=== PATIENT | female | born 1940 | race Caucasian/White ===

== ENCOUNTER → 2016-03-24 | Outpatient (CLI) | payer MEDICARE, OTHER | LOC: GMAL 12:30 | PROVIDERS: ATTEND Family Medicine | DX: D51.3 Other dietary vitamin B12 deficiency anemia (principal); E55.9 Vitamin D deficiency, unspecified ==

== ENCOUNTER → 2016-06-20 | Outpatient (CLI) | payer MEDICARE, OTHER | END | disposition home or self-care (01) | LOC: GMAL 17:13 | PROVIDERS: ATTEND Family Medicine | DX: R53.83 Other fatigue (principal); D51.3 Other dietary vitamin B12 deficiency anemia; E55.9 Vitamin D deficiency, unspecified ==

== ENCOUNTER → 2017-01-16 | Outpatient (CLI) | payer MEDICARE, OTHER | END | disposition home or self-care (01) | LOC: GMAL 10:44 | PROVIDERS: ATTEND Family Medicine | DX: D51.3 Other dietary vitamin B12 deficiency anemia (principal); E55.9 Vitamin D deficiency, unspecified ==

== ENCOUNTER → 2017-03-29 | Outpatient (CLI) | payer MEDICARE, OTHER ==
--- NOTE | 2017-03-29 20:24 | US ---
EXAM DESCRIPTION: Thyroid: Ultrasound. CLINICAL HISTORY: THYROID NODULE COMPARISON: None. TECHNIQUE: Transcutaneous scannin-dimensional and Doppler modes. Largest nodule(s) bilaterally will have point score for TI-RADS. FINDINGS: Right lobe dimensions 5.1 x 1.6 x 1.0 cm. Heterogeneous echoes. Hypoechoic solid nodule with well-defined borders in the lower aspect of the right lobe. Parallel orientation (wider than tall) with no echogenic foci. Minimally vascular, dimensions 1.8 x 1.3 x 0.8 cm. Normal vascularity in the remainder of the lobe and No echogenic foci. Contour right lobe smooth. Juxta-thyroid masses/fluid: none. Left lobe dimensions 4.8 x 1.7 x 1.3 cm. Heterogeneous echoes. Very hypoechoic mostly solid mass with well-defined borders in the mid lobe measuring 10.7 x 6.0 x 4.1 mm. This nodule is vascular, with parallel orientation, but contains no echogenic foci. Second nodule is hypoechoic, mostly solid with well-defined pack. Parallel orientation and nonvascular, but no echogenic foci. Dimensions are 13.6 x 9.0 x 8.0 mm. Normal vascularity in the remainder of the lobe And no echogenic foci. Contour left lobe smooth. Juxta-thyroid masses/fluid: none. Isthmus thickness 2.1 mm. Heterogeneous echoes. No cystic, no solid, and no complex lesions. Normal vascularity. Contour smooth. IMPRESSION: 1. 1.8 cm solid nodule in the right lobe with 4 points in the ACR TI RADS. Grade is TR 4-moderately suspicious. With greatest diameter longer than 1.5 cm, image guided fine needle aspiration sampling should be considered. 2. 1.1 cm solid nodule in the mid left lobe with 5 points in the ACR TI RADS. Grade is TR 4-moderately suspicious. With greatest diameter less than 1.5 cm, consider follow-up imaging in one year interval. 3. 1.4 cm solid nodule in the mid left lobe, with 4 points in the ACR TI RADS. Grade is TR 4-moderately suspicious. With greatest diameter less than 1.5 cm, consider follow-up imaging in one year interval. 4. No discrete solid masses, cystic masses, or edema in the surrounding soft tissues. *ACR TI-RADS recommendations: TR5 (greater than or equal to 7 points) - FNA if greater than or equal to 1 cm, follow-up if 0.5 - 0.9 cm every year for 5 years TR4 (4-6 points) - FNA if greater than or equal to 1.5 cm, follow-up if 1 - 1.4 cm in 1, 2, 3 and 5 years TR3 (3 points) - FNA if greater than or equal to 2.5 cm, follow -up if 1.5 - 2.4 cm in 1, 3 and 5 years TR2 (2 points) and TR1 (0 points) - No FNA or follow-up * ACR TI-RADS recommends that no more than two nodules with the highest ACR TI-RADS total point should be biopsied and no more than four nodules should be followed. White Paper of the ACR TI-RADS Committee, JACR, 2017. Electronically signed by: Sawyer Owusu MD 03/29/2017 8:23 PM [facility]
== END | disposition home or self-care (01) ==
LOC: US 09:49
PROVIDERS: ATTEND Family Medicine
DX: E04.1 Nontoxic single thyroid nodule (principal)

== ENCOUNTER → 2017-04-12 | Outpatient (CLI) | payer OTHER ==
--- NOTE | 2017-04-12 19:40 | US ---
EXAM DESCRIPTION: Biopsy of Thyroid: Ultrasound. CLINICAL HISTORY: 77 yearsFemale COMPARISON: Ultrasound thyroid gland 03/29/2017. TECHNIQUE: Procedure was explained to the patient with risks and benefits. The patient gave verbal and written consent. Sterile preparation draping. 1% xylocaine dermal anesthetic. Sterile ultrasound guidance. A total of 4 passes into nodule in the right lobe.; 3 needle samplings with a separate 1.5 inch, 25-gauge needle per sample, and 1 needle aspiration, with a separate 1.5 inch, 25-gauge needle/10-cc syringe set, per aspiration. Each sample was placed on a separate slide and fixed in 95% alcohol container. . Saccomanno fluid drawn into aspirate needle and rinse injected into Saccomanno container. Specimens will be sent for later pathologic examination at remote facility. . Patient tolerated procedure well, with no immediate complications. FINDINGS: Preliminary scans show the hypoechoic nodule in the right lobe measuring 1.3 x 0.7 cm. Multiple images show the echogenic sampling needles and aspiration needle within the nodule. IMPRESSION: Successful, ultrasound-guided, fine-needle aspiration and sampling of abnormal nodule in the right lobe of the thyroid gland. Pathology reports are pending. Electronically signed by: Sawyer Owusu MD 04/12/2017 7:39 PM [facility]MO Workstation: [id number]
== END ==
LOC: US 08:49
PROVIDERS: ATTEND Family Medicine
DX: E04.1 Nontoxic single thyroid nodule (principal)

== ENCOUNTER → 2017-06-12 | Outpatient (CLI) | payer OTHER ==
--- NOTE | 2017-06-13 09:27 | MRI ---
EXAM DESCRIPTION: Brain w/wo Contrast: Magnetic Resonance Imaging. CLINICAL HISTORY: ATAXIC GAIT COMPARISON: MRI scan brain 05/31/2012. TECHNIQUE: Multiplanar, high-field MRI, multiple conventional sequences, without and with gadolinium IV contrast. No adverse reactions. Multiple axial diffusion sequences. FINDINGS: Age-related FLAIR and T2-weighted signal changes in the periventricular white matter and conn-white matter junctions of the cerebral hemispheres. . Small right FLAIR foci in the bilateral basal ganglia. No hemorrhage, no cerebral edema, no mass-effect. Normal contrast enhancement. Normal signal in the brainstem and left cerebellar hemisphere. Question of atrophy/encephalomalacia lateral right hemisphere cortical conn matter and subcortical white matter. No hemorrhage, no cerebral edema, no mass-effect. Normal contrast enhancement. Concordance of the diffusion and non-diffusion sequences with no evidence of acute or subacute infarction. Cortical sulci, ventricles, and other CSF spaces, and the subdural spaces are normally configured for patients age except as noted in the right cerebellar hemisphere. No effacement or displacement. No midline shift. No extra-axial hemorrhage. Normal contrast enhancement. Normal flow signal void in the major vessels of the [place], and the venous sinuses. Dolichoectasia of the basilar artery and left vertebral artery dominance. IACs are symmetric bilaterally. Minimal mucosal thickening in the inferior bilateral mastoid air cells. No mass effect in the Cerebellopontine angles. Normal contrast enhancement. Pituitary gland occupies less than the sella. Normal contrast enhancement. Base of the cerebellar tonsils is above the foramen magnum. Scattered mucoperiosteal thickening in the paranasal sinuses. The bony calvarium is intact. IMPRESSION: 1. Age-related subtle white matter changes in the periventricular white matter and subcortical white matter. No significant cortical or central atrophy. No hemorrhage, cerebral edema, mass effect, or abnormal contrast enhancement. No diffusion restriction. Stable since the prior study in May 2012. 2. 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 Stable since the prior study. No diffusion restriction. 3. Normal noncontrast MRI diffusion study with no evidence for acute or subacute infarction. Electronically signed by: Sawyer Owusu MD 06/13/2017 9:26 AM CDT
== END ==
LOC: MRI 14:00
PROVIDERS: ATTEND Family Medicine
DX: R26.0 Ataxic gait (principal); G93.89 Other specified disorders of brain; Z79.899 Other long term (current) drug therapy

== ENCOUNTER 2017-11-03 17:44 | Emergency (ER) | payer OTHER ==
--- NOTE | 2017-11-03 17:52 | ED.PDOC ---
History of Present Illness - General Chief Complaint: Chest Pain/NH Stated Complaint: right sided chest pains Time Seen by Provider: 11/03/17 17:50 Source: patient Exam Limitations: no limitations - History of Present Illness Initial Comments: Charlotte Retana 77 y/o female stated that she had dull ache starting yesterday lasting for about 10 minute went away then she had another episode today lasting longer stating she might be having heart attack but on arrival here at ER completely gone.Had been treated for shingles right side of chest last week by her primary Md.Not on any type of pain medications.Has history of NH several years ago and had cardiac one stent placed.Denies dizziness,sob,diaphoresis. Timing/Duration: intermittent, resolved prior to arrival, other - yesterday Location: shoulder, other - right side chest Activities at Onset: none Prior Chest Pain/Cardiac Workup: cardiac cath, heart attack, other - stent cardiac Worsening Factors: nothing Nitro Today/Relief: no nitro taken today Aspirin Treatment Today: 81 mg x 4 Associated Symptoms: other - see hpi Allergies/Adverse Reactions: Allergies Penicillin G Allergy (Verified 07/09/14 03:20) Home Medications: Ambulatory Orders Apixaban [Eliquis] 5 mg PO BID 08/09/14 Aspirin [Aspirin Adult Low Dose] 81 mg PO DAILY 08/09/14 Atorvastatin Calcium [Lipitor] 80 mg PO BEDTIME 08/09/14 Carvedilol 3.125 mg PO BID 08/09/14 Donepezil HCl [Aricept] 10 mg PO DAILY 08/09/14 Memantine HCl [Namenda Xr] 28 mg PO DAILY 08/09/14 Pantoprazole Sodium 40 mg PO DAILY 08/09/14 Ranitidine HCl 150 mg PO BID 08/09/14 Spironolactone 12.5 mg PO DAILY 08/09/14 Ticagrelor [Brilinta] 90 mg PO BID 08/09/14 Gabapentin 300 mg PO BEDTIME #14 cap 11/03/17 Lidocaine 5% Patch [Lidoderm Patch] 1 ea TOP DAILY #14 patch 11/03/17 Tramadol HCl 50 mg PO Q4HR PRN #30 tab 11/03/17 Review of Systems - Review of Systems Constitutional: States: no symptoms reported EENTM: States: no symptoms reported Respiratory: States: no symptoms reported Cardiology: States: see HPI Gastrointestinal/Abdominal: States: no symptoms reported Genitourinary: States: no symptoms reported Musculoskeletal: States: no symptoms reported Skin: States: no symptoms reported Neurological: States: no symptoms reported Endocrine: States: no symptoms reported Hematologic/Lymphatic: States: no symptoms reported Past Medical History (General) - Patient Medical History Hx Seizures: No Hx Stroke: No Hx Dementia: No Hx Asthma: No Hx of COPD: No Hx Cardiac Disorders: Yes - NH July 09 Hx Congestive Heart Failure: Yes Hx Pacemaker: No Hx Hypertension: Yes Hx Thyroid Disease: No Hx Diabetes: No Hx Gastroesophageal Reflux: No Hx Renal Disease: No Hx Cancer: No Hx of HIV: No Hx Hepatitis C: No Hx MRSA: No Hx Other PMH: Yes - mild cognitive impairment Surgical History: other - cardiac stent - Vaccination History Hx Tetanus, Diphtheria Vaccination: Yes Hx Influenza Vaccination: Yes Hx Pneumococcal Vaccination: No - Social History Hx Tobacco Use: No Hx Chewing Tobacco Use: No Hx Alcohol Use: No Hx Substance Use: No Hx Substance Use Treatment: No Hx Depression: Yes - yes not on medication Hx Physical Abuse: No Hx Emotional Abuse: No Hx Suspected Abuse: No - Activities of Daily Living Patient Lives Alone: No Grooming Ability: Independent Eating (Feeding) Ability: Independent Toileting Ability: Independent - Female History Patient : No Family Medical History - Family History Mother Family History: Unknown Living Status: Hx Cardiac Disease: Yes - dad Father Hx Cardiac Disease: Yes Physical Exam - Physical Exam General Appearance: Alert, Comfortable, No apparent distress Eyes, Ears, Nose, Throat Exam: normal ENT inspection Neck: non-tender, full range of motion Respiratory: chest non-tender, lungs clear, normal breath sounds, no respiratory distress Cardiovascular/Chest: normal peripheral pulses, regular rate, rhythm, no murmur Peripheral Pulses: radial,right: 2+, radial,left: 2+ Gastrointestinal/Abdominal: normal bowel sounds, non tender, soft Extremity: normal range of motion, non-tender, no pedal edema, no calf tenderness Neurologic: alert, oriented x 3 Skin Exam: normal color, warm/dry, rash - dry rash along level of right 3rd - 5th rib anteriorly extending to right mid scapular area Lymphatic: no adenopathy Progress - Progress Progress: 11/03/17 18:56 11/03/17 17:53 IV Care:Saline Lock per Protoc QSHIFT 11/03/17 18:00 EKG STAT 11/03/17 18:31 B-TYPE NATRIURETIC PEPTIDE/BNP Stat CARDIAC PANEL,ER Stat HEPATIC FUNCTION PANEL Stat Laboratory Results - last 24 hr 11/03/17 18:31 WBC 4.4 L RBC 4.09 L Hgb 13.2 Hct 39.4 MCV 96.2 MCH 32.2 H MCHC 33.5 RDW 13.0 Plt Count 145 MPV 8.3 Absolute Neuts (auto) 3.10 Absolute Lymphs (auto) 0.70 L Absolute Monos (auto) 0.40 Absolute Eos (auto) 0.10 Absolute Basos (auto) 0.10 Neutrophils % 71.7 Lymphocytes % 16.5 L Monocytes % 8.5 Eosinophils % 1.8 Basophils % 1.5 PT 10.8 INR 1.08 PTT (SP) 23.0 Sodium 139 Potassium 3.9 Chloride 105 Carbon Dioxide 26 Anion Gap 11.9 L BUN 22 H Creatinine 1.05 BUN/Creatinine Ratio 21.0 H Random Glucose 109 H Serum Osmolality 281.5 Calcium 9.2 Magnesium 2.0 Total Bilirubin 0.4 Direct Bilirubin < 0.1 Indirect Bilirubin 0.3 AST 17 ALT 13 Alkaline Phosphatase 64 Creatine Kinase 61 Serum Total Protein 6.2 L Albumin 3.9 11/03/17 21:21 D/W patient and her daughter test result and EKG findings not showing any myocardial injury and most likely source of her pain from post herpetic neuralgia which she had last week and along the course of the shingles rashes was on her right side of her chest where she is hurting. - Results/Orders Results/Orders: 11/03/17 17:53 IV Care:Saline Lock per Protoc QSHIFT 11/03/17 18:00 EKG STAT 11/03/17 18:31 B-TYPE NATRIURETIC PEPTIDE/BNP Stat CARDIAC PANEL,ER Stat HEPATIC FUNCTION PANEL Stat 11/03/17 20:33 EKG Assessment DAILY 11/03/17 20:45 EKG STAT Laboratory Results - last 24 hr 11/03/17 11/03/17 18:31 20:33 WBC 4.4 L RBC 4.09 L Hgb 13.2 Hct 39.4 MCV 96.2 MCH 32.2 H MCHC 33.5 RDW 13.0 Plt Count 145 MPV 8.3 Absolute Neuts (auto) 3.10 Absolute Lymphs (auto) 0.70 L Absolute Monos (auto) 0.40 Absolute Eos (auto) 0.10 Absolute Basos (auto) 0.10 Neutrophils % 71.7 Lymphocytes % 16.5 L Monocytes % 8.5 Eosinophils % 1.8 Basophils % 1.5 PT 10.8 INR 1.08 PTT (SP) 23.0 Sodium 139 Potassium 3.9 Chloride 105 Carbon Dioxide 26 Anion Gap 11.9 L BUN 22 H Creatinine 1.05 BUN/Creatinine Ratio 21.0 H Random Glucose 109 H Serum Osmolality 281.5 Calcium 9.2 Magnesium 2.0 Total Bilirubin 0.4 Direct Bilirubin < 0.1 Indirect Bilirubin 0.3 AST 17 ALT 13 Alkaline Phosphatase 64 Creatine Kinase 61 CK-MB (CK-2) 2.4 CK-MB (CK-2) % Not Reportable Troponin I < 0.02 < 0.02 Serum Total Protein 6.2 L Albumin 3.9 - EKG/XRAY/CT EKG: Sinus, nonspecific ST T wave Chg Comments: HR-63 XRAY: chest - no acute findings - Additional EKG/XRAY/Consults EKG #2: Sinus, nonspecific ST T wave Chg - HR-62 Departure - Departure Clinical Impression: Right-sided chest pain, Post herpetic neuralgia Time of Disposition: 21:26 Disposition: Discharge to Home or Self Care Condition: Fair Departure Forms: ED Discharge - Pt. Copy, Patient Portal Self Enrollment Instructions: Olinda Prakash (DC) Referrals: Jg Sykes III, MD [Primary Care Provider] - 1-2 Weeks Prescriptions: Tramadol HCl 50 mg PO Q4HR PRN #30 tab PRN Reason: Pain Gabapentin 300 mg PO BEDTIME #14 cap Lidocaine 5% Patch [Lidoderm Patch] 1 ea TOP DAILY #14 patch Home Medications: Ambulatory Orders Apixaban [Eliquis] 5 mg PO BID 08/09/14 Aspirin [Aspirin Adult Low Dose] 81 mg PO DAILY 08/09/14 Atorvastatin Calcium [Lipitor] 80 mg PO BEDTIME 08/09/14 Carvedilol 3.125 mg PO BID 08/09/14 Donepezil HCl [Aricept] 10 mg PO DAILY 08/09/14 Memantine HCl [Namenda Xr] 28 mg PO DAILY 08/09/14 Pantoprazole Sodium 40 mg PO DAILY 08/09/14 Ranitidine HCl 150 mg PO BID 08/09/14 Spironolactone 12.5 mg PO DAILY 08/09/14 Ticagrelor [Brilinta] 90 mg PO BID 08/09/14 Gabapentin 300 mg PO BEDTIME #14 cap 11/03/17 Lidocaine 5% Patch [Lidoderm Patch] 1 ea TOP DAILY #14 patch 11/03/17 Tramadol HCl 50 mg PO Q4HR PRN #30 tab 11/03/17 Additional Instructions: Return to EMERGENCY ROOM as needed;Follow up with your primary Md 06 November 2017 ;Continue with all your home medications
--- NOTE | 2017-11-03 18:27 | RAD ---
EXAM DESCRIPTION: Chest,1 View CLINICAL HISTORY:77 years Female, pain Comparison: None FINDINGS: No focal lung consolidation. No pleural effusion. No pneumothorax. Cardiac and mediastinal silhouette is unremarkable. No acute osseous abnormality. Soft tissues are unremarkable. IMPRESSION: No acute findings. No focal lung consolidation. Electronically signed by: Barak De MD 11/03/2017 6:25 PM CDT
[2017-11-03] MEDS ORDERED: ASPIRIN (CHEWABLE) 81 MG TAB PO ONE (18:56)
[2017-11-03 21:41] VITALS: BP 126/66; TEMP 97.2; O2SAT 98
== END 2017-11-03 21:42 | disposition home or self-care (01) ==
LOC: ER 17:44
DX: R07.89 Other chest pain (principal); B02.29 Other postherpetic nervous system involvement; I25.2 Old myocardial infarction; I50.9 Heart failure, unspecified; I11.0 Hypertensive heart disease with heart failure; F32.9 Major depressive disorder, single episode, unspecified; Z95.5 Presence of coronary angioplasty implant and graft; Z79.899 Other long term (current) drug therapy; Z79.82 Long term (current) use of aspirin; Z88.0 Allergy status to penicillin

== ENCOUNTER → 2017-12-11 | Outpatient (CLI) | payer OTHER ==
--- NOTE | 2017-12-11 14:12 | MRI ---
EXAM DESCRIPTION: Lumbar Spine w/o Contrast : Magnetic Resonance Imaging. CLINICAL HISTORY: LUMBAR RADICULOPATHY COMPARISON: LUMBAR TECHNIQUE: Multiplanar, multiple standard sequences, non contrast MRI, lumbar spine. FINDINGS: L5-S1: Moderate disc space loss. Posterior midline 3 mm bulge. Canal is patent. Bilateral facet arthrosis. Mild to moderate left foraminal narrowing. L4-5: Moderate disc space loss to the left of midline with Modic type II endplate reactive changes. Disc osteophyte bulge into the left foramen with moderate narrowing. Mild narrowing of the right foramen. Tiny posterior disc bulge. Borderline mild canal stenosis. L3-4: Disc desiccation and posterior 4 mm bulge with accompanying osteophytes.. Midline Modic type II endplate reactive changes. Moderate canal narrowing. Mild to moderate left foraminal narrowing. Disc osteophyte bulge into the right foramen with borderline stenosis. Bilateral facet arthrosis and flavum ligament hypertrophy. Narrowing of the left subarticular recess. L2-3: Disc desiccation and minimal disc space loss. Anterior Modic type II endplate reactive changes. Schmorl's node superior L3 endplate posterior broad-based bulge. Right facet arthrosis and bilateral flavum ligament hypertrophy. Moderate canal narrowing. Right side disc osteophyte complex encroachment on the right foramen with stenosis. Mild left foraminal narrowing. Narrowing right subarticular recess. L1-2: Disc desiccation minimal disc space loss and posterior broad-based bulge. Flavum ligament hypertrophy. Right side disc osteophyte complex encroaching on the foramen which is stenotic. Mild narrowing of the left foramen. Conus terminates at L1. T12-L1: Normal signal in the disc with no bulging and disc space preserved. Minimal hypertrophy of the posterior flavum ligaments. Canal and foramina are patent. L1-L3 levoscoliosis. L4-S1 dextroscoliosis. Paravertebral soft tissues mild paravertebral muscle atrophy. Bilateral psoas muscle atrophy.. Normal marrow signal in the remaining vertebral bodies and the posterior elements. Vertebral bodies are not compressed at any level. IMPRESSION: 1. Right-sided spondylosis at L2-3 with right foraminal stenosis. Evaluate for right L2 radiculopathy. Posterior disc bulge. 2. Right-sided spondylosis at L1-2 with right foraminal stenosis. Evaluate for right L1 radiculopathy. Posterior disc bulge. 3. Moderate spondylosis L3-4. Right foraminal stenosis by disc osteophyte bulge. Correlate for right L3 radiculopathy. 4. Moderate disc space loss and left-sided spondylosis with disc osteophyte bulge causing moderate left foraminal narrowing. Electronically signed by: Sawyer Owusu MD 12/11/2017 2:10 PM CDT
== END ==
LOC: MRI 09:38
PROVIDERS: ATTEND Family Medicine
DX: M51.26 Other intervertebral disc displacement, lumbar region (principal); M47.896 Other spondylosis, lumbar region